=== PATIENT | female | born 1955 | race Caucasian/White ===

== ENCOUNTER 2018-04-23 14:11 | Emergency (ER) | payer OTHER ==
[2018-04-23 14:19] VITALS: RESP 18
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
--- NOTE | 2018-04-23 16:50 | CT ---
Date of service: 04/23/2018 PROCEDURE: CT HEAD WITHOUT CONTRAST. HISTORY: headache COMPARISON: None available. TECHNIQUE: Axial computed tomography images were obtained through the head/brain without intravenous contrast. Supplemental Coronal and Sagittal projections created and reviewed. Radiation dose: Total exam DLP = 822.51 mGy-cm. This CT exam was performed using one or more of the following dose reduction techniques: Automated exposure control, adjustment of the mA and/or kV according to patient size, and/or use of iterative reconstruction technique. FINDINGS: HEMORRHAGE: No intracranial hemorrhage. BRAIN: No mass effect or edema. Dystrophic calcifications identified left basal ganglia. No associated edema or mass effect. The findings, primarily in the caudate nucleus measured 2.3 x 3.8 cm. Cortical atrophy, periventricular small vessel disease. VENTRICLES: Asymmetry of the ventricles, the left slightly larger than the right. CALVARIUM: Unremarkable. PARANASAL SINUSES: Unremarkable as visualized. No significant inflammatory changes. MASTOID AIR CELLS: Unremarkable as visualized. No inflammatory changes. OTHER FINDINGS: None. IMPRESSION: No acute findings related to/ accounting for the clinical presentation. Large focus of dystrophic calcification left basal ganglia. Elective MRI recommended for further evaluation. No associated edema or mass effect identified. Mild ipsilateral ventricular enlargement noted.
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
--- NOTE | 2018-04-23 16:56 | RAD ---
Date of service: 04/23/2018 PROCEDURE: Radiographs of the Left Shoulder HISTORY: Posttraumatic left shoulder pain. COMPARISON: No prior. FINDINGS: BONES: Normal. No fracture. JOINTS: Preserved glenohumeral relationship, acromioclavicular degenerative change: Mild. SOFT TISSUES: Normal. OTHER FINDINGS: None. IMPRESSION: No significant or acute findings to account for/ related to the clinical presentation.
--- NOTE | 2018-04-23 16:57 | RAD ---
Date of service: 04/23/2018 PROCEDURE: Radiographs of the left elbow. HISTORY: Posttraumatic pain. COMPARISON: No prior. FINDINGS: BONES: Normal. No fracture. JOINTS: Normal. No osteoarthritis. SOFT TISSUES: Normal. JOINT EFFUSION: None. OTHER FINDINGS: None IMPRESSION: No acute findings related to/ accounting for the clinical presentation.
--- NOTE | 2018-04-23 17:03 | CT ---
Date of service: 04/23/2018 PROCEDURE: CT Cervical Spine without contrast HISTORY: Posttraumatic neck pain. COMPARISON: None available. TECHNIQUE: Axial computed tomography images were obtained of the cervical spine without the use of intravenous contrast. Coronal and sagittal reformatted images were created and reviewed. Radiation dose: Total exam DLP = 287.38 mGy-cm. This CT exam was performed using one or more of the following dose reduction techniques: Automated exposure control, adjustment of the mA and/or kV according to patient size, and/or use of iterative reconstruction technique. FINDINGS: VERTEBRAE: No fracture. Normal alignment. No destructive bony lesion. DISCS/SPINAL CANAL/NEURAL FORAMINA: No significant central canal or neural foraminal stenosis. Discs heights are grossly preserved. Facet degenerative changes/arthropathy. No evidence of jumped or locked facet. Small osteophytes identified posteriorly at multiple levels. PARASPINAL SOFT TISSUES: Unremarkable. OTHER FINDINGS: None. IMPRESSION: No acute findings related to/ accounting for the clinical presentation. Additional benign and/or incidental findings described above.
[2018-04-23 18:30] VITALS: BP 102/61; PULSE 79; TEMP 98.8; O2SAT 98
== END 2018-04-23 18:40 | disposition home or self-care (01) ==
LOC: H.ER 14:11
DX: S39.92XA Unspecified injury of lower back, initial encounter (principal); S49.92XA Unspecified injury of left shoulder and upper arm, initial encounter; V03.90XA Pedestrian on foot injured in collision with car, pick-up truck or van, unspecified whether traffic or nontraffic accident, initial encounter